=== PATIENT | male | born 1950 | race Caucasian/White ===

== ENCOUNTER 2020-07-03 11:39 | Inpatient (IN) | payer MEDICARE, MEDICAID ==
[2020-07-03] MEDS ORDERED: AZITHROMYCIN IV 500 MG in SODIUM CHLORIDE 0.9% 250ML 250 ML IVPB ONE (12:01)
--- NOTE | 2020-07-03 12:04 | ED.PDOC ---
History of Present Illness - General Chief Complaint: Fever Stated Complaint: COVID + / Fever Time Seen by Provider: 07/03/20 11:42 Source: patient Exam Limitations: clinical condition - History of Present Illness Initial Comments: The patient is a 70-year-old male presented emergency room secondary to respiratory distress. The patient was at the long term this morning when apparently he became fairly acutely more short of breath. He thinks maybe 3 to 4 hours of shortness of breath. He is normally on oxygen apparently. He does apparently have lung cancer that is not currently being treated. There are some confusion as to whether the patient is full code or not. The patient is having some confusion himself at this point. I am told that he was just at the [facility] a day or 2 ago but he does not recall this. He is able to give simple yes no answers to current questions about how he feels. He does not appear to be having any new pain anywhere. He is wheelchair-bound apparently due to a hip fracture according to him. He is uncertain if he has had a stroke in the past. At one point he was apparently on Coumadin. He does not know if he has had any GI bleeds in the past. He does not think he passed out. He did receive a dose of IV Solu-Medrol 125 mg with EMS and was placed on higher flow oxygen in the form of a nonrebreather. We are currently titrating him over to a high flow nasal cannula which he seems to be tolerating well. According to EMS he is mentating better currently. Again I have never seen this patient before and I am uncertain of his normal mental state however he does not appear to be at least mildly confused at this point. Breath sounds are coarse bilaterally. Air movement is fair. The patient does exhibit significant wasting. He is pale. The patient did apparently test positive for coronavirus this morning. He also apparently had a fever earlier this morning. I just got off of the phone with the patient's sister, with the name of Em Sapp, at 1240 in the afternoon. She reports that she does have power of tax attorney for him. After a discussion with her, she does agree to the following advanced directive measures: No chest compression or cardioversion, no intubation. She lives in [place] so we are trying to arrange for formal written documentation of this. Additional information obtained as to the patient's history: The patient does have a history of epilepsy since the age of 14. He has had multiple falls related to seizures and multiple bony trauma related to seizures. He has had a severe closed head injury back in 1988 with some residual memory deficits. His baseline mental status normally consist of not knowing where he is or what year it is. He is normally able to answer simple yes and no questions. The patient has had multiple pneumonias in the past with sepsis as well as urinary tract infections in the past with sepsis. 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 They found metastases to the lung and possibly the kidney in 2016. He had a right upper lobectomy in 2016. No history of asthma or COPD or CHF. He does have a factor V Leiden deficiency and at one point was on blood thinners. 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 No known pulmonary emboli. He does have a history of hypertension as well as some chronic pleural effusions. The patient actually got out of the hospital not yesterday but back on 16 June. He had been in isolation quarantine at the long term up until he yesterday when he was released from it and immediately tested positive. She reports his Dilantin level needs to be kept between 10 and 20 to prevent seizures. He is also had a recent dental infection. He does have a history of peripheral arterial disease but no coronary artery disease. 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 He has been on oxygen for the last year. He has had issues with mucus plugging. He has been off of blood thinners for the last year secondary to fall risk. He has had a history of MRSA urosepsis. Family also reports that the patient becomes very anxious if he comes off of his BuSpar or his Seroquel. This additional information obtained from his sister and his [id number] is very useful and appreciated. Timing/Duration: 1-3 hours Severity: severe Improving Factors: medication - Oxygen Worsening Factors: nothing Associated Symptoms: cough, diaphoresis, loss of appetite, shortness of breath Allergies/Adverse Reactions: Allergies NO KNOWN ALLERGY Allergy (Verified 07/03/20 11:52) Home Medications: Ambulatory Orders Acetaminophen [Tylenol] 650 mg PO PRN 07/03/20 Amlodipine Besylate [Norvasc] 10 mg PO BEDTIME 07/03/20 Atorvastatin Calcium [Lipitor] 20 mg PO BEDTIME 07/03/20 Diclofenac Sodium (Topical) [Voltaren] 1 % TD QID 07/03/20 Lacosamide [Vimpat] 200 mg PO BID 07/03/20 Magnesium Hydroxide [Milk Of Magnesia] 30 ml PO PRN 07/03/20 Phenytoin Sodium Cap Extended [Dilantin Cap] 200 mg PO BID 07/03/20 Potassium Chloride [K-Tab] 20 meq PO DAILY 07/03/20 Prednisone 40 mg PO BID 07/03/20 QUEtiapine FUMARATE [SEROquel] 100 mg PO BEDTIME 07/03/20 Tamsulosin [Flomax] 0.4 mg PO QD 07/03/20 Review of Systems - Review of Systems Constitutional: States: malaise, weakness EENTM: States: no symptoms reported Respiratory: States: cough, short of breath, wheezing Cardiology: States: edema - Chronic Gastrointestinal/Abdominal: States: no symptoms reported Genitourinary: States: no symptoms reported Musculoskeletal: States: see HPI Skin: States: no symptoms reported Neurological: States: see HPI Endocrine: States: no symptoms reported All other Systems: No Change from Baseline Past Medical History (General) - Patient Medical History Hx Seizures: Yes - epilepsy Hx Hypertension: Yes Hx Cancer: Yes - Stage IV - Lung Cancer - Activities of Daily Living [facility]Assisted Living (if applicable):: [facility] - Female History Patient is a Female of Child Bearing Age (10 -59 yrs old): No Family Medical History - Family History Father Living Status: Physical Exam - Physical Exam General Appearance: Alert, Frail, Ill Appearing Eye Exam: bilateral normal - Pale conjunctiva Ears, Nose, Throat: hearing grossly normal, normal pharynx Neck: full range of motion, supple Respiratory: no respiratory distress, no accessory muscle use, rhonchi - Coarse bilaterally Cardiovascular/Chest: normal peripheral pulses, regular rate, rhythm, no edema Peripheral Pulses: radial,right: 2+, radial,left: 2+ Gastrointestinal/Abdominal: non tender, soft Rectal Exam: deferred Back Exam: no vertebral tenderness Extremity: no calf tenderness, pelvis stable, pedal edema - Chronic, other - Chronic limitations on range of motion to the bilateral lower extremities. Neurologic: alert, other - See history of present illness. He does appear to have some significant peripheral neuropathy. He does report a history of epilepsy. Skin Exam: other - Chronic skin changes to bilateral lower extremities related to long-term edema., pallor Comments: Vital Signs - 24 hr 07/03/20 11:40 Temperature 97.2 F L Pulse Rate [ 76 pulse ox] Respiratory 24 Rate Blood Pressure 108/74 [Left Arm] O2 Sat by Pulse 99 Oximetry Vital Signs - 24 hr 07/03/20 07/03/20 11:40 13:01 Temperature 97.2 F L Pulse Rate [ 76 68 pulse ox] Respiratory 24 16 Rate Blood Pressure 108/74 90/53 [Left Arm] O2 Sat by Pulse 99 100 Oximetry Progress - Progress Progress: 07/03/20 14:18 The patient is a 70-year-old male presenting to emergency room [facility] to increased shortness of breath this morning along with fever. He was diagnosed with coronavirus by test at the long term yesterday. The patient has had a increased oxygen requirement. He does have scattered rhonchi. The patient has known metastatic disease to bilateral lung avila. He has a factor V Leiden deficiency and has been off of anticoagulation. CT scan here today shows bilateral lower lung field segmental and subsegmental pulmonary emboli. Infiltrates and bilateral pleural effusions are also noted on the CT scan. It is difficult to say how much of this is chronic. It is also difficult to say if the pulmonary emboli are acute or subacute. The patient has a history of multiple recurrent pneumonias requiring hospitalization on average every 3 months according to his sister for the last 3 to 4 years. For the coronavirus the patient has been started on azithromycin, remdesivir and dexamethasone. Blood cultures have been done. Due to his frequent pneumonias he is also being placed on Zosyn as he is apparently tolerated that well in the past and there is some questionable history of Pseudomonas in his previous pneumonias. Blood pressures are borderline on this patient. It is difficult to say whether the lower blood pressures are due to the pulmonary emboli or the coronavirus infection itself. The patient has responded positively to a small fluid bolus. He is mentating much better at this point. Oxygen requirement has decreased from a nonrebreather down to about 5 L on the high flow nasal cannula. He has a baseline requirement of about 2 L. Consideration was given to giving thrombolytic therapy to this patient, however upon reviewing the CT scan of the chest, I believe the patient is at too high of a risk of hemorrhage from the known metastatic sites, not to mention the unknown ones, to use that therapy at this point in the patient's current condition. He is however being anticoagulated with Lovenox at a therapeutic dose. The patient is at very high risk of dying with the coronavirus in the presence of known metastatic lung disease along with known coagulation disorder. Family does understand that. As per discussion with his Sister Em, the patient is not to be intubated, have chest compressions or electrical cardioversion or defibrillation. Her wishes are that if he is going to pass that we simply make him as comfortable as possible. The patient does require timely dosing of his seizure medications prevent seizures. Additionally family does report that he does have significant anxiety when he comes into the hospital, that we will need to look forward to treating. - Results/Orders Results/Orders: EKG shows normal sinus rhythm at 76 bpm. Normal axis. Borderline R wave p rogression. No ST segment or T wave changes indicative of acute ischemia. Normal QT interval. Laboratory Tests 07/03/20 07/03/20 07/03/20 11:25 11:25 11:25 WBC 9.6 RBC 4.06 L Hgb 12.2 L Hct 36.0 L MCV 88.6 MCH 30.0 MCHC 33.8 RDW 15.2 H Plt Count 238 MPV 7.1 L Absolute Neuts (auto) 8.20 H Absolute Lymphs (auto) 1.00 Absolute Monos (auto) 0.40 Absolute Eos (auto) 0.00 Absolute Basos (auto) 0.00 Neutrophils % 85.2 H Lymphocytes % 10.2 L Monocytes % 4.3 Eosinophils % 0.0 L Basophils % 0.3 PT INR PTT (SP) Fibrinogen D-Dimer, Quantitative Sodium 135 Potassium 4.3 Chloride 92 L Carbon Dioxide 31 Anion Gap 16.3 BUN 26 H Creatinine 1.05 BUN/Creatinine Ratio 24.8 H Random Glucose 143 H Serum Osmolality 277.3 Lactic Acid Calcium 8.4 Magnesium 2.3 Ferritin 382.2 H Total Bilirubin 0.4 AST 25 ALT 12 Alkaline Phosphatase 95 LD Total 155 Creatine Kinase 46 CK-MB (CK-2) 2.3 CK-MB (CK-2) % Not Reportable Troponin I 0.03 C-Reactive Protein 28.8 H* B-Natriuretic Peptide 49.6 Serum Total Protein 7.5 Albumin 3.7 Globulin 3.8 H Albumin/Globulin Ratio 1.0 L TSH 3.24 Urine Color Urine Appearance Urine pH Ur Specific [place] Urine Protein Urine Glucose (UA) Urine Ketones Urine Blood Urine Nitrite Urine Bilirubin Urine Urobilinogen Ur Leukocyte Esterase Urine RBC Urine WBC Ur Epithelial Cells Amorphous Sediment Urine Bacteria Phenytoin 07/03/20 07/03/20 07/03/20 11:25 11:25 11:27 WBC RBC Hgb Hct MCV MCH MCHC RDW Plt Count MPV Absolute Neuts (auto) Absolute Lymphs (auto) Absolute Monos (auto) Absolute Eos (auto) Absolute Basos (auto) Neutrophils % Lymphocytes % Monocytes % Eosinophils % Basophils % PT 10.9 INR 1.10 PTT (SP) 36.2 H Fibrinogen 449 H D-Dimer, Quantitative 2160.0 H* Sodium Potassium Chloride Carbon Dioxide Anion Gap BUN Creatinine BUN/Creatinine Ratio Random Glucose Serum Osmolality Lactic Acid Calcium Magnesium Ferritin Total Bilirubin AST ALT Alkaline Phosphatase LD Total Creatine Kinase CK-MB (CK-2) CK-MB (CK-2) % Troponin I C-Reactive Protein B-Natriuretic Peptide Serum Total Protein Albumin Globulin Albumin/Globulin Ratio TSH Urine Color Yellow Urine Appearance Clear Urine pH 5.5 Ur Specific [place] 1.015 Urine Protein 30 Urine Glucose (UA) Negative Urine Ketones Negative Urine Blood Negative Urine Nitrite Negative Urine Bilirubin Negative Urine Urobilinogen 0.2 Ur Leukocyte Esterase Negative Urine RBC 0 Urine WBC 0-1 Ur Epithelial Cells 1-3 Amorphous Sediment 1+ Urine Bacteria 1+ Phenytoin 12.2 07/03/20 12:15 WBC RBC Hgb Hct MCV MCH MCHC RDW Plt Count MPV Absolute Neuts (auto) Absolute Lymphs (auto) Absolute Monos (auto) Absolute Eos (auto) Absolute Basos (auto) Neutrophils % Lymphocytes % Monocytes % Eosinophils % Basophils % PT INR PTT (SP) Fibrinogen D-Dimer, Quantitative Sodium Potassium Chloride Carbon Dioxide Anion Gap BUN Creatinine BUN/Creatinine Ratio Random Glucose Serum Osmolality Lactic Acid 2.0 Calcium Magnesium Ferritin Total Bilirubin AST ALT Alkaline Phosphatase LD Total Creatine Kinase CK-MB (CK-2) CK-MB (CK-2) % Troponin I C-Reactive Protein B-Natriuretic Peptide Serum Total Protein Albumin Globulin Albumin/Globulin Ratio TSH Urine Color Urine Appearance Urine pH Ur Specific [place] Urine Protein Urine Glucose (UA) Urine Ketones Urine Blood Urine Nitrite Urine Bilirubin Urine Urobilinogen Ur Leukocyte Esterase Urine RBC Urine WBC Ur Epithelial Cells Amorphous Sediment Urine Bacteria Phenytoin CT angiogram of the chest shows multiple pulmonary masses. He does additionally have lower lung field segmental and subsegmental pulmonary emboli. There is mild cardiomegaly. There are lower lobe infiltrates as well as chronic pleural effusions. See report for details. Departure - Departure Clinical Impression: Bilateral pulmonary embolism, Pneumonia due to human coronavirus Disposition: Admit Patient Departure Forms: ED Discharge - Pt. Copy, Patient Portal Self Enrollment Referrals: TOMMY PALOMARES [Primary Care Provider] - 1-2 Weeks Home Medications: Ambulatory Orders Acetaminophen [Tylenol] 650 mg PO PRN 07/03/20 Amlodipine Besylate [Norvasc] 10 mg PO BEDTIME 07/03/20 Atorvastatin Calcium [Lipitor] 20 mg PO BEDTIME 07/03/20 Diclofenac Sodium (Topical) [Voltaren] 1 % TD QID 07/03/20 Lacosamide [Vimpat] 200 mg PO BID 07/03/20 Magnesium Hydroxide [Milk Of Magnesia] 30 ml PO PRN 07/03/20 Phenytoin Sodium Cap Extended [Dilantin Cap] 200 mg PO BID 07/03/20 Potassium Chloride [K-Tab] 20 meq PO DAILY 07/03/20 Prednisone 40 mg PO BID 07/03/20 QUEtiapine FUMARATE [SEROquel] 100 mg PO BEDTIME 07/03/20 Tamsulosin [Flomax] 0.4 mg PO QD 07/03/20 Decision To Admit - Decistion To Admit Decision to Admit Reason: Medical Nature Decision to Admit Date: 07/03/20 Decision to Admit Time: 14:36
[2020-07-03] MEDS ORDERED: SODIUM CHLORIDE 0.9% 1000ML 500 ML IVS ONE ×2 (12:11→12:46)
[2020-07-03] MEDS ORDERED: DEXAMETHASONE INJ 4 MG/ML VIAL IV ONE (12:11)
--- NOTE | 2020-07-03 12:16 | RAD ---
EXAM DESCRIPTION: Chest,1 View CLINICAL HISTORY: 70 years Male, hypoxia, sob COMPARISON: None. Findings: One view(s)/radiograph(s) Left lung mass measuring 3.7 cm. Cardiac silhouette and pulmonary vasculature are within normal limits. Small bilateral pleural effusions. No pneumothorax. Osteopenia. No acute osseous abnormality identified. IMPRESSION: Left lung mass measuring 3.[address] chest for further evaluation. Electronically signed by: Fernando Villela MD 07/03/2020 12:14 PM [facility]
[2020-07-03] MEDS ORDERED: PIPERACILLIN/TAZOBACTAM 3.375 GM in SODIUM CHLORIDE 0.9% 100ML 100 ML IVPB ONE (12:34)
[2020-07-03] MEDS ORDERED: REMDESIVIR 200 MG in SODIUM CHLORIDE 0.9% 250ML 250 ML IVPB ONE (12:56)
--- NOTE | 2020-07-03 13:52 | CT ---
Study: CT angiography of the chest, pulmonary embolus protocol. Indication: covid, hypoxia, ddimer, factor 5 leiden Technique: Axial CT images were acquired through the chest after intravenous administration of contrast utilizing the CT angiography, pulmonary embolus protocol. Computer-generated 3D reconstructions (MIPS) were performed and reviewed. This exam was performed according to our departmental dose-optimization program, which includes automated exposure control, adjustment of the mA and/or kV according to patient size and/or use of iterative reconstruction technique. Comparison: Radiographs, same day. Findings: Cardiomegaly. Scattered atherosclerosis. Scattered subsegmental and segmental pulmonary emboli within the bilateral lower lobes. Enlarged subcarinal/right hilar lymphadenopathy suspected with mild narrowing of the right mainstem bronchus but difficult to characterize due to phase of imaging. Degenerative changes of the spine noted. Severe left shoulder osteoarthritis with a 30 mm loose body in the subscapular recess. Partial visualization of ossification within what is believed to be the left biceps musculature. Numerous bilateral pulmonary nodules/masses. Largest left upper lobe mass posteriorly measures up to 3.8 cm in diameter. These are concerning for metastatic disease. Small bilateral pleural effusions with mild posterior dependent bibasilar consolidation and air bronchograms, right greater than left. No pneumothorax. Impression: Bilateral lower lobe pulmonary emboli. Numerous pulmonary masses/nodules concerning for metastatic disease. Correlation with histologic analysis versus PET/CT recommended. Small bilateral pleural effusions with bibasilar consolidation, right greater than left. Suspected mediastinal/right hilar lymphadenopathy and narrowing of the right mainstem bronchus but difficult to evaluate due to phase of imaging. Additional findings as above. Findings on this exam were relayed to Luis Greenberg at 07/03/2020 1:49 PM [employer]. Electronically signed by: Miguel Mattson MD 07/03/2020 1:50 PM [employer]
[2020-07-03] MEDS ORDERED: ENOXAPARIN SODIUM 80 MG/0.8 ML SYG SUBCU ONE (14:06)
[2020-07-03] MEDS ORDERED: IPRATROPIUM/ALBUTEROL 3 ML VIAL NEB ONE (14:32)
[2020-07-03] MEDS ORDERED: ACETYLCYSTEIN 20 % 6,000 MG/30 ML VIAL NEB ONE (14:32)
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
[2020-07-03] MEDS ORDERED: SODIUM CHLORIDE 0.9% 1000ML 1,000 ML IVS PRN (16:50)
[2020-07-03] MEDS ORDERED: SODIUM CHLORIDE 0.9% (FLUSH) 10 ML SYG ONE (19:21)
[2020-07-03] MEDS: MORPHINE SULFATE INJ 10 MG/ML VIAL IV PRN (19:24)
[2020-07-03] MEDS ORDERED: HALOPERIDOL LACTATE INJ 5 MG/ML VIAL IM ONE (19:49)
[2020-07-03] MEDS ORDERED: diphenhydrAMINE HCL 50 MG/ML VIAL IV ONE (19:50)
[2020-07-03] MEDS ORDERED: FUROSEMIDE INJ 40 MG/4 ML VIAL IV ONE (19:51)
[2020-07-03] MEDS ORDERED: guaiFENesin ER TAB 600 MG TAB ONE (19:52)
[2020-07-03] MEDS: guaiFENesin ER TAB 600 MG TAB PO SCH (19:56)
[2020-07-03] MEDS: ALBUTEROL INHALER 64 PUFF/8GM INH SCH (20:40)
[2020-07-04] MEDS: MORPHINE SULFATE INJ 10 MG/ML VIAL IV PRN ×4 (00:03→18:15)
[2020-07-04] MEDS: ENOXAPARIN SODIUM 80 MG/0.8 ML SYG SUBCU SCH ×2 (02:19→12:10)
[2020-07-04] MEDS: diphenhydrAMINE HCL 50 MG/ML VIAL IV PRN ×3 (02:19→21:20)
[2020-07-04] MEDS: HALOPERIDOL LACTATE INJ 5 MG/ML VIAL IM PRN ×3 (02:19→21:21)
[2020-07-04] MEDS ORDERED: SODIUM CHLORIDE 0.9% (FLUSH) 10 ML SYG IV PRN (08:09)
[2020-07-04] MEDS ORDERED: QUEtiapine FUMARATE 100 MG TAB PO ONE (08:21)
[2020-07-04] MEDS ORDERED: SODIUM CHLORIDE 0.9% 250ML 250 ML ONE (08:24)
[2020-07-04] MEDS ORDERED: AZITHROMYCIN IV 500 MG VIAL IVPB ONE (08:24)
[2020-07-04] MEDS ORDERED: MAGNESIUM HYDROXIDE 30 ML UD PO SCH (08:30)
[2020-07-04] MEDS ORDERED: TAMSULOSIN 0.4 MG CAP PO SCH (08:30)
[2020-07-04] MEDS: DEXAMETHASONE INJ 10 MG/ML VIAL IV SCH (08:50)
[2020-07-04] MEDS: AZITHROMYCIN IV 500 MG in SODIUM CHLORIDE 0.9% 250ML 250 ML IVPB SCH (08:51)
[2020-07-04] MEDS: guaiFENesin ER TAB 600 MG TAB PO SCH ×2 (08:51→21:20)
[2020-07-04] MEDS: cefTRIAXone SODIUM 1 GM in SODIUM CHL 0.9% 50ML MIN-BAG+ 50 ML IVPB SCH (08:51)
[2020-07-04] MEDS: IV SET AND CAP CHANGE INJ INJ SCH (08:54)
[2020-07-04] MEDS: ALBUTEROL INHALER 64 PUFF/8GM INH SCH ×4 (09:00→20:40)
[2020-07-04] MEDS ORDERED: NON-FORMULARY MEDICATION 1 EA MIS (Potassium Chloride [K-Tab] 20 MEQ) PO SCH (09:00)
[2020-07-04] MEDS: PHENYTOIN SODIUM CAP EXTENDED 100 MG CAP PO SCH ×2 (12:10→21:19)
[2020-07-04] MEDS: POTASSIUM CHLORIDE 20 MEQ TAB PO SCH (12:10)
[2020-07-04] MEDS: TAMSULOSIN 0.4 MG CAP PO SCH (12:11)
[2020-07-04] MEDS: REMDESIVIR 100 MG in SODIUM CHLORIDE 0.9% 250ML 250 ML IVPB SCH (12:11)
[2020-07-04] MEDS: DICLOFENAC SODIUM 1% TD SCH ×4 (12:52→21:25)
[2020-07-04] MEDS: LACOSAMIDE 200 MG PO SCH ×2 (12:52→21:25)
[2020-07-04] MEDS: busPIRone HCL 5 MG TAB PO SCH ×2 (12:58→21:19)
--- NOTE | 2020-07-04 13:15 | PN ---
SUPERVISING PHYSICIAN: Xander Celis MD DATE: 07/04/20 SUBJECTIVE: The patient is confused this morning, but responds that he is not short of breath. However, he continues to take his oxygen off and is on the call light quite often. He was up all night and quite confused overnight. Haldol and Benadryl helped for a short amount of time last night. OBJECTIVE: VITAL SIGNS: Blood pressure 170/89, heart rate 85, respiratory rate 20, temperature 98.2, oxygen saturation 99% on 5 liters via nasal cannula. GENERAL: Mr. Sapp is a 70-year-old male patient who is very anxious and agitated, but in no active distress. NEUROLOGIC: The patient is alert. LUNGS: Coarse sounds bilaterally. CARDIOVASCULAR: Regular rate and rhythm. Normal S1, S2. ABDOMEN: Soft. Positive bowel sounds. EXTREMITIES: Lower extremities with no edema. LABORATORY: Labs today show white count 11.4, hemoglobin 12.3, hematocrit 36.9, platelet count 238. D-dimer went up to 2330 from 2160. Chemistry shows a sodium 138, potassium 3.8, chloride 95, CO2 27, BUN 22, creatinine 0.82. Glucose 90, calcium 8.1. C-reactive protein 21.6, troponin negative. ASSESSMENT: 1. Bilateral pulmonary emboli. 2. COVID pneumonia. 3. Metastatic lung cancer. 4. Factor V Leiden deficiency. 5. Dehydration. 6. Altered mental status, likely acute delirium on chronic dementia. 7. Seizure disorder. PLAN: We will continue current therapies with Remdesivir as well as anticoagulation, empiric antibiotics, scheduled albuterol inhalers and Mucinex. His oxygenation status really has not worsened. At this point, his biggest issue is really delirium/anxiety and agitation. I have resumed his home medications. We will start some BuSpar on top of the Seroquel if needed. The patient has a Cheung catheter for close I&O monitoring as well as the fact that the patient is unsteady on his feet and cannot get up on his own. #[id number] [facility]
[2020-07-04] MEDS ORDERED: fentaNYL CITRATE INJ 50 MCG/ML 2 ML AMP ONE (18:36)
[2020-07-04] MEDS ORDERED: fentaNYL CITRATE INJ 50 MCG/ML 2 ML AMP IV ONE (18:41)
[2020-07-04] MEDS: fentaNYL CITRATE INJ 50 MCG/ML 2 ML AMP IV PRN (20:30)
[2020-07-04] MEDS ORDERED: NON-FORMULARY MEDICATION 1 EA MIS (Amlodipine Besylate [Norvasc] 10 MG) PO SCH (21:00)
[2020-07-04] MEDS: ATORVASTATIN 20 MG TAB PO SCH (21:19)
[2020-07-04] MEDS: amLODIPine BESYLATE 5 MG TAB PO SCH (21:19)
[2020-07-04] MEDS: QUEtiapine FUMARATE 100 MG TAB PO SCH (21:20)
[2020-07-05] MEDS: ENOXAPARIN SODIUM 80 MG/0.8 ML SYG SUBCU SCH ×2 (02:07→13:12)
[2020-07-05] MEDS: diphenhydrAMINE HCL 50 MG/ML VIAL IV PRN ×4 (02:36→15:58)
[2020-07-05] MEDS: HALOPERIDOL LACTATE INJ 5 MG/ML VIAL IM PRN ×4 (02:36→15:52)
[2020-07-05] MEDS: fentaNYL CITRATE INJ 50 MCG/ML 2 ML AMP IV PRN ×3 (04:34→09:49)
--- NOTE | 2020-07-05 07:21 | RAD ---
EXAM: XR Chest, 1 View CLINICAL HISTORY: The patient is 70 years old and is Male; covid-19 TECHNIQUE: Frontal view of the chest. COMPARISON: CT chest 07/03/2020. FINDINGS: Lungs: Consolidation in the right lung base. Multiple rounded opacities in the lungs bilaterally. Pleural space: Blunting of the costophrenic angles suggestive of bilateral pleural effusions. No pneumothorax. Heart: Unremarkable. No cardiomegaly. Mediastinum: Unremarkable. Bones/joints: Degenerative changes of the left glenohumeral joint. IMPRESSION: 1. Consolidation in the right lung base. 2. Multiple rounded opacities in the lungs bilaterally corresponding to the nodules/masses seen on the prior CT chest. 3. Blunting of the costophrenic angles suggestive of bilateral pleural effusions. Electronically signed by: Bimal Abebe MD 07/05/2020 7:19 AM [employer]
[2020-07-05] MEDS: DEXAMETHASONE INJ 10 MG/ML VIAL IV SCH (07:29)
[2020-07-05] MEDS: busPIRone HCL 5 MG TAB PO SCH ×2 (07:29→20:41)
[2020-07-05] MEDS: POTASSIUM CHLORIDE 20 MEQ TAB PO SCH (07:30)
[2020-07-05] MEDS: guaiFENesin ER TAB 600 MG TAB PO SCH ×2 (07:30→20:43)
[2020-07-05] MEDS: TAMSULOSIN 0.4 MG CAP PO SCH (07:30)
[2020-07-05] MEDS: PHENYTOIN SODIUM CAP EXTENDED 100 MG CAP PO SCH ×2 (07:30→20:43)
[2020-07-05] MEDS: cefTRIAXone SODIUM 1 GM in SODIUM CHL 0.9% 50ML MIN-BAG+ 50 ML IVPB SCH (07:31)
[2020-07-05] MEDS: DICLOFENAC SODIUM 1% TD SCH ×2 (07:33→13:12)
[2020-07-05] MEDS: LACOSAMIDE 200 MG PO SCH ×2 (09:13→20:43)
[2020-07-05] MEDS: ALBUTEROL INHALER 64 PUFF/8GM INH SCH ×4 (09:15→20:45)
[2020-07-05] MEDS: AZITHROMYCIN IV 500 MG in SODIUM CHLORIDE 0.9% 250ML 250 ML IVPB SCH (09:43)
[2020-07-05] MEDS: REMDESIVIR 100 MG in SODIUM CHLORIDE 0.9% 250ML 250 ML IVPB SCH (13:12)
[2020-07-05] MEDS: CAPSAICIN 0.025% CREAM 60 GM TUBE TOP SCH ×2 (15:45→20:44)
[2020-07-05] MEDS: ATORVASTATIN 20 MG TAB PO SCH (20:43)
[2020-07-05] MEDS: QUEtiapine FUMARATE 100 MG TAB PO SCH (20:44)
[2020-07-05] MEDS: amLODIPine BESYLATE 5 MG TAB PO SCH (20:45)
[2020-07-06] MEDS: ENOXAPARIN SODIUM 80 MG/0.8 ML SYG SUBCU SCH ×2 (01:31→14:19)
[2020-07-06] MEDS ORDERED: SODIUM CHLORIDE 0.9% 500ML 500 ML IVS ONE (06:15)
[2020-07-06] MEDS: ALBUTEROL INHALER 64 PUFF/8GM INH SCH ×4 (07:45→19:35)
--- NOTE | 2020-07-06 08:02 | PN ---
SUPERVISING PHYSICIAN: Xander Celis MD DATE: 07/05/20 SUBJECTIVE: The patient is sitting up in bed. He continues to be quite confused. We have adjusted his medications as Haldol, Benadryl and Ativan calm the patient down. He takes his oxygen off and on. Nursing reports there have been no other issues. OBJECTIVE: VITAL SIGNS: Temperature 97.6, heart rate 103, blood pressure 154/97, respiratory rate 21, O2 saturation 95% on 6 liters nasal cannula. RESPIRATORY: A few scattered rhonchi throughout and diminished at the bases. CARDIAC: Regular rate and rhythm. At times, he is slightly tachycardic. NEUROLOGIC: He is awake, but confused and somewhat agitated. LABORATORY: WBCs 12,600, hemoglobin 13.5, hematocrit 41.4. He has a left shift on differential. D-dimer 834. Electrolytes are basically within normal limits with the exception of his calcium is slightly low at 8. C-reactive protein 20.1. MICROBIOLOGY: Preliminary blood cultures show no growth after 48 hours. RADIOLOGY: Chest x-ray shows 1) Consolidation in the right lung base. 2) Multiple rounded opacities in the lungs bilaterally corresponding to the nodules seen in the prior CT chest. 3) Blunting of the costophrenic angles suggestive of bilateral pleural effusions. ASSESSMENT: 1. Bilateral pulmonary emboli. 2. COVID pneumonia. 3. Metastatic lung cancer. 4. Factor V Leiden deficiency. 5. Dehydration. 6. 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 7. Seizure disorder. PLAN: We will continue the COVID guidelines including lab and medications. We will monitor that closely. There is an issue with one of his seizure medicines called lacosamide and the intermediate is supposed to bring his medications so we can continue that. He does get quite agitated and confused most likely due to his dementia. We will monitor that closely and medicate him as appropriate. We will continue on the Lovenox as previously ordered. We will continue to monitor the patient closely and follow as needed. #[id number] [facility]
[2020-07-06] MEDS: PHENYTOIN SODIUM CAP EXTENDED 100 MG CAP PO SCH ×2 (08:25→20:46)
[2020-07-06] MEDS: busPIRone HCL 5 MG TAB PO SCH ×2 (08:26→20:46)
[2020-07-06] MEDS: LACOSAMIDE 200 MG PO SCH ×2 (08:26→20:48)
[2020-07-06] MEDS: TAMSULOSIN 0.4 MG CAP PO SCH (08:27)
[2020-07-06] MEDS: POTASSIUM CHLORIDE 20 MEQ TAB PO SCH (08:27)
[2020-07-06] MEDS: HALOPERIDOL LACTATE INJ 5 MG/ML VIAL IM PRN ×2 (08:27→15:06)
[2020-07-06] MEDS: guaiFENesin ER TAB 600 MG TAB PO SCH ×2 (08:27→20:47)
[2020-07-06] MEDS: cefTRIAXone SODIUM 1 GM in SODIUM CHL 0.9% 50ML MIN-BAG+ 50 ML IVPB SCH (08:27)
[2020-07-06] MEDS: DEXAMETHASONE INJ 10 MG/ML VIAL IV SCH (08:27)
[2020-07-06] MEDS: diphenhydrAMINE HCL 50 MG/ML VIAL IV PRN (08:29)
[2020-07-06] MEDS: AZITHROMYCIN IV 500 MG in SODIUM CHLORIDE 0.9% 250ML 250 ML IVPB SCH (09:05)
[2020-07-06] MEDS: CAPSAICIN 0.025% CREAM 60 GM TUBE TOP SCH ×4 (09:05→21:07)
[2020-07-06] MEDS: REMDESIVIR 100 MG in SODIUM CHLORIDE 0.9% 250ML 250 ML IVPB SCH (11:40)
--- NOTE | 2020-07-06 17:44 | PN ---
SUPERVISING PHYSICIAN: Xander Celis MD DATE: 07/06/20 SUBJECTIVE: The patient is lying in bed. He is sleeping. A few hours prior, he was medicated due to his severe agitation and his inability to get keep his oxygen on. He does not follow commands well. It is reported by nursing that he does do well when he has some mild sedatives on board and will keep his oxygen on. His O2 satisfactory are in the low 90s on high flow oxygen. No other issues per nursing staff. OBJECTIVE: VITAL SIGNS: Temperature 97.1, heart rate 102, blood pressure 135/91. It did go up to 148/109 when he was agitated. Respiratory rate 18, O2 saturation 92% on 14 high flow oxygen. RESPIRATORY: Diminished at the bases. CARDIAC: Regular rate and rhythm. NEUROLOGIC: He is sleeping right now and slightly lethargic. He does open his eyes to command and answers simple questions at this time. LABORATORY: WBCs 10,900, hemoglobin 16.1, hematocrit 44.3. D-dimer 1,240. Sodium 141, potassium 4.8, chloride 99, carbon dioxide 27, BUN 33, creatinine 1.52. Calcium is 8, magnesium 2.2. C-reactive protein 20.1. MICROBIOLOGY: Preliminary blood cultures show no growth after 3 days. All other labs and films have been reviewed via the EMR. ASSESSMENT: 1. Bilateral pulmonary emboli. 2. COVID pneumonia. 3. Metastatic lung cancer. 4. Factor V Leiden deficiency. 5. Dehydration. 6. 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 7. Seizure disorder. PLAN: We will continue the COVID guidelines including labs, x-rays and medications. I have also ordered PICC line to be placed as the patient has lost multiple IV sites and is a difficult stick. I spoke with his sister at length today about his code status as well as his progress here in the hospital. At this point, she would like to continue the DNR, but wants to continue to treat him aggressively. I have ordered lab for in the morning including a Dilantin level. We will continue to monitor the patient closely and follow as needed. #[id number] [facility]
[2020-07-06] MEDS: amLODIPine BESYLATE 5 MG TAB PO SCH (20:46)
[2020-07-06] MEDS: QUEtiapine FUMARATE 100 MG TAB PO SCH (20:47)
[2020-07-06] MEDS: ATORVASTATIN 20 MG TAB PO SCH (20:47)
[2020-07-07] MEDS: ENOXAPARIN SODIUM 80 MG/0.8 ML SYG SUBCU SCH ×2 (02:24→14:03)
--- NOTE | 2020-07-07 04:01 | RAD ---
EXAM: XR Chest, 1 View CLINICAL HISTORY: The patient is 70 years old and is Male; PICC line placement TECHNIQUE: Frontal view of the chest. COMPARISON: No relevant prior studies available. Chest x-ray 07/07/2020. FINDINGS: Lungs: Multiple rounded opacities in the lungs bilaterally, unchanged. Scattered patchy airspace disease in the mid to lower lung avila bilaterally. Pleural space: Blunting of the right costophrenic angle suggestive of a right pleural effusion. No pneumothorax. Heart: Unremarkable. No cardiomegaly. Mediastinum: Unremarkable. Bones/joints: Degenerative changes in the left glenohumeral joint. Tubes, lines and devices: Right PICC with tip at the cavoatrial junction. IMPRESSION: 1. Right PICC with tip at the cavoatrial junction. 2. Multiple rounded opacities in the lungs bilaterally, unchanged. 3. Scattered patchy airspace disease in the mid to lower lung avila bilaterally. 4. Blunting of the right costophrenic angle suggestive of a right pleural effusion. Electronically signed by: Bimal Abebe MD 07/07/2020 3:59 AM [facility]
[2020-07-07] MEDS ORDERED: PHENOL THROAT SPRAY 180 ML BTTL MT ONE (05:01)
[2020-07-07] MEDS ORDERED: PHENOL THROAT SPRAY 180 ML BTTL MT PRN (05:04)
[2020-07-07] MEDS: HALOPERIDOL LACTATE INJ 5 MG/ML VIAL IM PRN ×2 (07:35→11:45)
[2020-07-07] MEDS: ALBUTEROL INHALER 64 PUFF/8GM INH SCH ×4 (08:17→20:33)
[2020-07-07] MEDS: busPIRone HCL 5 MG TAB PO SCH ×2 (08:46→20:01)
[2020-07-07] MEDS: LACOSAMIDE 200 MG PO SCH ×2 (08:47→20:00)
[2020-07-07] MEDS: POTASSIUM CHLORIDE 20 MEQ TAB PO SCH (08:47)
[2020-07-07] MEDS: PHENYTOIN SODIUM CAP EXTENDED 100 MG CAP PO SCH ×2 (08:47→19:59)
[2020-07-07] MEDS: IV SET AND CAP CHANGE INJ INJ SCH (08:47)
[2020-07-07] MEDS: TAMSULOSIN 0.4 MG CAP PO SCH (08:47)
[2020-07-07] MEDS: guaiFENesin ER TAB 600 MG TAB PO SCH ×2 (08:47→20:01)
[2020-07-07] MEDS: CAPSAICIN 0.025% CREAM 60 GM TUBE TOP SCH ×4 (09:42→20:01)
[2020-07-07] MEDS: DEXAMETHASONE INJ 10 MG/ML VIAL IV SCH (12:36)
[2020-07-07] MEDS: cefTRIAXone SODIUM 1 GM in SODIUM CHL 0.9% 50ML MIN-BAG+ 50 ML IVPB SCH (12:37)
[2020-07-07] MEDS: AZITHROMYCIN IV 500 MG in SODIUM CHLORIDE 0.9% 250ML 250 ML IVPB SCH (12:37)
[2020-07-07] MEDS ORDERED: cefTRIAXone SODIUM 1 GM VIAL IM ONE (12:38)
[2020-07-07] MEDS ORDERED: AZITHROMYCIN 250 MG TAB PO ONE (12:39)
[2020-07-07] MEDS ORDERED: LIDOCAINE 1% 2 ML VIAL INJ ONE (12:45)
--- NOTE | 2020-07-07 17:01 | PN ---
SUPERVISING PHYSICIAN: Xander Celis MD DATE: 07/07/20 SUBJECTIVE: The patient had a PICC line placed today but shortly after he placed it, he pulled it out. He still remains agitated at times and he has pretty much one-on-one nursing as he will not stay in bed. His oxygen saturation is okay but he is still requiring high flow at 6 liters. OBJECTIVE: VITAL SIGNS: Temperature 97.8, heart rate 67, blood pressure 164/78, respirations 16, oxygen saturation 93% on 6 liter nasal cannula. GENERAL: Patient looks to be in no acute distress. RESPIRATORY: Lung sounds just diminished towards the bases. CARDIAC: Regular rate and rhythm. ABDOMEN: Soft, non-tender, positive bowel sounds. EXTREMITIES: Without edema. NEUROLOGIC: He is active and alert. He is quite confused but will answer basic questions. No obvious neuro or motor deficits noted. LABORATORY: White count down to 7,000, hemoglobin 11.9, hematocrit 34.8, platelet count 307,000, differential does show a left shift. D-dimer back to 1240 from 834 yesterday. Chemistries today show creatinine down to 0.98, calcium low at 7.7 but corrected to 8.0 for 2.9 albumin. Magnesium normal at 2.2. MICROBIOLOGY: Blood cultures remain negative after 4 days. RADIOLOGY: Chest x-ray this morning per radiology interpretation shows multiple rounded opacities in the lung bases bilaterally, unchanged, there is scattered patchy airspace disease in the mid to lower lung avila bilaterally. ASSESSMENT: 1. Bilateral pulmonary emboli. 2. COVID pneumonia. 3. Metastatic lung cancer. 4. Factor V Leiden deficiency. 5. Dehydration. 6. 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 7. Seizure disorder. PLAN: We will continue with current treatment on COVID guidelines.however, we are waiting on line to be placed, until then we will go with oral medications. Will try to avoid as much sedation as possible but certainly the patient is becoming difficult at times to manage as he gets quite irritated and taking one-on-one care. He does remain a DNR. In regards to the patient's Cheung, this will remain in place due to the patient's high risk for falling and we will monitor and leave as appropriate to care. Until we can transition patient to outpatient management and titrate his oxygen down to discharge home, we will continue to monitor and treat as needed. #[id number] [facility]
[2020-07-07] MEDS: REMDESIVIR 100 MG in SODIUM CHLORIDE 0.9% 250ML 250 ML IVPB SCH (19:53)
[2020-07-07] MEDS: QUEtiapine FUMARATE 100 MG TAB PO SCH (19:59)
[2020-07-07] MEDS: amLODIPine BESYLATE 5 MG TAB PO SCH (19:59)
[2020-07-07] MEDS: ATORVASTATIN 20 MG TAB PO SCH (20:01)
[2020-07-08] MEDS: ENOXAPARIN SODIUM 80 MG/0.8 ML SYG SUBCU SCH ×2 (02:31→13:53)
[2020-07-08] MEDS: PANTOPRAZOLE SODIUM TAB 40 MG PO SCH (05:40)
[2020-07-08] MEDS: ALBUTEROL INHALER 64 PUFF/8GM INH SCH ×4 (08:37→20:50)
[2020-07-08] MEDS: PHENYTOIN SODIUM CAP EXTENDED 100 MG CAP PO SCH ×2 (09:16→20:00)
[2020-07-08] MEDS: POTASSIUM CHLORIDE 20 MEQ TAB PO SCH (09:16)
[2020-07-08] MEDS: guaiFENesin ER TAB 600 MG TAB PO SCH ×2 (09:16→20:00)
[2020-07-08] MEDS: busPIRone HCL 5 MG TAB PO SCH ×2 (09:16→20:00)
[2020-07-08] MEDS: TAMSULOSIN 0.4 MG CAP PO SCH (09:16)
[2020-07-08] MEDS: LACOSAMIDE 200 MG PO SCH ×2 (09:19→20:02)
[2020-07-08] MEDS: BIFIDOBACTERIUM INFANTIS 4 MG CAP PO SCH (09:19)
[2020-07-08] MEDS: HALOPERIDOL LACTATE INJ 5 MG/ML VIAL IM PRN (09:51)
[2020-07-08] MEDS: CAPSAICIN 0.025% CREAM 60 GM TUBE TOP SCH ×4 (10:50→22:28)
[2020-07-08] MEDS: AZITHROMYCIN IV 500 MG in SODIUM CHLORIDE 0.9% 250ML 250 ML IVPB SCH (13:54)
[2020-07-08] MEDS: DEXAMETHASONE INJ 10 MG/ML VIAL IV SCH (13:54)
[2020-07-08] MEDS: cefTRIAXone SODIUM 1 GM in SODIUM CHL 0.9% 50ML MIN-BAG+ 50 ML IVPB SCH (13:54)
--- NOTE | 2020-07-08 15:51 | PN ---
SUPERVISING PHYSICIAN: Xander Celis MD DATE: 07/08/20 SUBJECTIVE: The patient looks to be resting comfortably. He is not quite as agitated today as he was previously. They were able to get a midline in place. He is still maintaining 02 saturations with no signs of distress but still ranging between 6 to 7 liters on high flow nasal cannula. OBJECTIVE: VITAL SIGNS: Temperature 97, blood pressure 150/91, respirations 18, oxygen saturation 90% on high flow nasal cannula at 7 liters at rest. GENERAL: Patient looks to be in no acute distress. RESPIRATORY: Lung sounds just diminished towards the bases. CARDIAC: Regular rate and rhythm. ABDOMEN: Soft, non-tender, positive bowel sounds. EXTREMITIES: Without edema. NEUROLOGIC: He is active and alert. He is quite confused but will answer basic questions. No obvious neuro or motor deficits noted. ASSESSMENT: 1. Bilateral pulmonary emboli. 2. COVID pneumonia. 3. Metastatic lung cancer. 4. Factor V Leiden deficiency. 5. Dehydration. 6. 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 7. Seizure disorder. PLAN: Again, we will continue with current treatment and guidelines. He does have a PICC in place and we restarted his IV medications that he was getting orally. He does have a Cheung in place which remains necessary due to the patient's dementia and requirements for increasing oxygen demand. Still avoiding any sedation if possible but will certainly treat as needed as he does get quite agitated at times. Until we can transition his 02 saturations down we will continue to monitor and treat as needed. #[id number] [facility]
[2020-07-08] MEDS: QUEtiapine FUMARATE 100 MG TAB PO SCH (20:00)
[2020-07-08] MEDS: amLODIPine BESYLATE 5 MG TAB PO SCH (20:00)
[2020-07-08] MEDS: ATORVASTATIN 20 MG TAB PO SCH (20:00)
[2020-07-08] MEDS: fentaNYL CITRATE INJ 50 MCG/ML 2 ML AMP IV PRN (20:03)
[2020-07-08] MEDS: diphenhydrAMINE HCL 50 MG/ML VIAL IV PRN (20:03)
[2020-07-08] MEDS ORDERED: ZIPRASIDONE INJ 20 MG/ML VIAL IM ONE (22:46)
[2020-07-09] MEDS: ENOXAPARIN SODIUM 80 MG/0.8 ML SYG SUBCU SCH (01:38)
[2020-07-09] MEDS ORDERED: PANTOPRAZOLE SODIUM TAB 40 MG PO ONE (04:50)
[2020-07-09] MEDS: PANTOPRAZOLE SODIUM TAB 40 MG PO SCH (05:44)
[2020-07-09 06:07] VITALS: O2SAT 94
[2020-07-09] MEDS: ALBUTEROL INHALER 64 PUFF/8GM INH SCH ×2 (08:45→13:59)
[2020-07-09] MEDS: DEXAMETHASONE INJ 10 MG/ML VIAL IV SCH (10:26)
[2020-07-09] MEDS: LACOSAMIDE 200 MG PO SCH (10:27)
[2020-07-09] MEDS: busPIRone HCL 5 MG TAB PO SCH (10:27)
[2020-07-09] MEDS: TAMSULOSIN 0.4 MG CAP PO SCH (10:27)
[2020-07-09] MEDS: guaiFENesin ER TAB 600 MG TAB PO SCH (10:27)
[2020-07-09] MEDS: PHENYTOIN SODIUM CAP EXTENDED 100 MG CAP PO SCH (10:27)
[2020-07-09] MEDS: POTASSIUM CHLORIDE 20 MEQ TAB PO SCH (10:27)
[2020-07-09] MEDS: cefTRIAXone SODIUM 1 GM in SODIUM CHL 0.9% 50ML MIN-BAG+ 50 ML IVPB SCH (10:27)
[2020-07-09] MEDS: BIFIDOBACTERIUM INFANTIS 4 MG CAP PO SCH (10:27)
[2020-07-09] MEDS: AZITHROMYCIN IV 500 MG in SODIUM CHLORIDE 0.9% 250ML 250 ML IVPB SCH (10:28)
[2020-07-09] MEDS: CAPSAICIN 0.025% CREAM 60 GM TUBE TOP SCH ×2 (10:28→13:26)
[2020-07-09] MEDS ORDERED: ACETAMINOPHEN 325 MG TAB ONE (12:05)
[2020-07-09] MEDS ORDERED: ACETAMINOPHEN 325 MG TAB PO ONE (12:12)
[2020-07-09 13:29] VITALS: BP 135/81; TEMP 97.5
--- NOTE | 2020-07-10 09:25 | DS ---
SUPERVISING PHYSICIAN: Bimal Stark MD ADMISSION DIAGNOSIS: 1. Bilateral pulmonary emboli. 2. COVID pneumonia. 3. Metastatic lung cancer. 4. Factor V Leiden deficiency. 5. Dehydration. 6. Altered mental status, likely acute delirium on chronic dementia. 7. History of seizure disorder. DISCHARGE DIAGNOSIS: 1. Bilateral pulmonary emboli. 2. COVID pneumonia. 3. Metastatic lung cancer. 4. Factor V Leiden deficiency. 5. Dehydration. 6. 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 7. Seizure disorder. REASON FOR HOSPITALIZATION: This is a 70-year-old male patient with a history of lung cancer who came to the hospital for fever and shortness of breath. [facility] apparently was [facility] this morning and was more short of breath than normal. He was recently admitted to the [facility] and discharged from [place] and was in isolation due to COVID contact and then came back positive. In the Emergency Room, he was evaluated to have bilateral pulmonary emboli on CT of the chest. There were numerous pulmonary masses and nodules concerning for metastatic lung cancer, small bilateral pleural effusions and basilar consolidations as well and consistent with his diagnosis. There were not patchy infiltrates consistent with COVID pneumonitis. However, he was hypoxic upon arrival. He was placed initially on a non-rebreather, but then de- escalated to 5 liters. Apparently his oxygenation status is okay. His labs showed a low chloride of 92, elevated BUN of 26, creatinine preserved. CRP 28.8. He does have an elevated D-dimer at 2160, thus he did have the CTA showing bilateral pulmonary emboli. He did not have an elevated white count. It was 9.6, however, he did have left shift of 85.2. Urinalysis insignificant. According to documentation provided by his sister, the patient does have a significant past medical history. As stated, he has metastatic lung cancer which appears to be in the kidneys. He also has a history of Factor V Leiden which apparently in the past he was on warfarin for, but he does not utilize any anticoagulation anymore. LABORATORY: White count on discharge was 7,100, hemoglobin 11.9, hematocrit 34.8, platelet count 207,000. Differential does show a left shift. D-dimer was still elevated at 1240. Chemistries showed potassium 3.5, sodium normal, calcium 7.9 corrected for 2.9 albumin to 8.1. Creatinine 0.79. C-reactive protein down to 5.8 from initial of 28.8. Urinalysis was within normal limits. Dilantin level was within therapeutic range at 12.2. MICROBIOLOGY: Blood cultures negative after 5 days. RADIOLOGY: He had multiple radiographic studies including CTA of the chest and per radiologic interpretation showed bilateral lower lobe pulmonary emboli, numerous pulmonary masses, nodules concerning for metastatic disease. There was note of small bilateral pleural effusions with bibasilar consolidations, right greater than left. Final chest x-ray on 07/07/20 per radiologic interpretation showed multiple round opacities in the lungs bilaterally unchanged. There was scattered patchy airspace disease in the mid and lower lung avila. He also had an echocardiogram that showed left ventricular ejection fraction at 60-65%. See that report for details. HOSPITAL COURSE: Mr. Sapp was admitted for treatment of COVID pneumonia and complications resulting in bilateral pulmonary emboli. He was started on treatment with Remdesivir, Rocephin, azithromycin, Decadron as well as anticoagulation with Lovenox 1 mg per kg. Initially, his O2 saturations in the ER showed he was maintaining 96% on 5 liters nasal cannula. During his hospitalization, he had increasing oxygen demands as high as high flow nasal cannula up to 10 liters and at that time was maintaining 95%. He was able to titrate down on his O2 and at time of discharge he was maintaining 96% on room air. It was felt he had shown good clinical improvement and therefore he was transferred back to [facility]. PLAN: Mr. Sapp was discharged to [facility] to continue with treatment for his pulmonary emboli. He was started on Eliquis 10 mg b.i.d. for 7 days and then transition to 5 mg b.i.d. and to continue at Dr. Easton's discretion at least for probably 30 days. He was also continued on antibiotic coverage with cefdinir twice daily for additional 5 days as well as he was already on prednisone on home medications, which was continued. He was to continue with his normal diet as tolerated and increase activity as tolerated per physical therapy. He was to return to the ER should he have any concerning symptoms and continue to followup with Dr. Easton within 1 to 2 weeks or sooner as needed. CONDITION ON DISCHARGE: Stable and improving. DISPOSITION: The patient was discharged to [facility]. #[id number] MTDD
== END 2020-07-09 13:15 | DRG 177 ==
LOC: ER 11:39 → OBSVTOIN 16:08 → MS 16:08
PROVIDERS: ADMIT Nurse Practitioner; ATTEND Nurse Practitioner Family
PROC: B32T1ZZ Computerized Tomography (CT Scan) of Left Pulmonary Artery using Low Osmolar Contrast (ICD-10-PCS; 2020-07-03)
PROC: B32S1ZZ Computerized Tomography (CT Scan) of Right Pulmonary Artery using Low Osmolar Contrast (ICD-10-PCS; 2020-07-03)
PROC: XW033E5 Introduction of Remdesivir Anti-infective into Peripheral Vein, Percutaneous Approach, New Technology Group 5 (ICD-10-PCS; 2020-07-03)
PROC: 02HV33Z Insertion of Infusion Device into Superior Vena Cava, Percutaneous Approach (ICD-10-PCS; principal; 2020-07-06)
PROC: 5A0945A Assistance with Respiratory Ventilation, 24-96 Consecutive Hours, High Flow/Velocity Cannula (ICD-10-PCS; 2020-07-06)
DX: U07.1 COVID-19 (principal); J12.89 Other viral pneumonia; I26.99 Other pulmonary embolism without acute cor pulmonale; C34.11 Malignant neoplasm of upper lobe, right bronchus or lung; C79.01 Secondary malignant neoplasm of right kidney and renal pelvis; C79.02 Secondary malignant neoplasm of left kidney and renal pelvis; D68.51 Activated protein C resistance; F05 Delirium due to known physiological condition; G40.909 Epilepsy, unspecified, not intractable, without status epilepticus; E86.0 Dehydration; F03.90 Unspecified dementia, unspecified severity, without behavioral disturbance, psychotic disturbance, mood disturbance, and anxiety; Z66 Do not resuscitate; Z86.718 Personal history of other venous thrombosis and embolism

== ENCOUNTER 2020-07-09 22:08 | Emergency (ER) | payer MEDICARE, MEDICAID ==
[2020-07-09] MEDS ORDERED: SODIUM CHLORIDE 0.9% (FLUSH) 10 ML SYG IV PRN (22:22)
--- NOTE | 2020-07-09 22:27 | ED.PDOC ---
History of Present Illness - General Chief Complaint: Laceration Stated Complaint: laceration, COVID + Time Seen by Provider: 07/09/20 22:12 Source: patient, EMS, correction records - History of Present Illness Initial Comments: Patient seen at 2215 upon ED arrival by EMS. 70-year-old male with past medical history of metastatic lung cancer status post right upper lobectomy, factor V Leiden, hypercoagulability previously on warfarin, history of TBI with short-term memory loss who is brought in by EMS from [facility] for chief complaint of ground-level fall with head injury and scalp laceration. The fall was unwitnessed and occurred at the correction just prior to arrival. The patient is unable to recall what happened but believes he was trying to transfer from his bed to his wheelchair. Reports that he is wheelchair-bound and not ambulatory. Reports that he slipped and fell to the ground and struck the left side of his head. Denies any LOC. Nurses heard the fall and ran into the room and found him lying on the ground awake and alert. There was a moderate amount of blood on the floor and patient was noted to have a laceration to the left sided scalp. EMS reported the patient had borderline low blood pressure in route which improved just prior to arrival here. Otherwise his vitals are noted to be stable. The patient reports here that he has constant 7/10 severity headache all throughout the head, no medications given for relief. Denies any neck pain, weakness, numbness, chest pain, shortness of breath, abdominal pain, nausea/vomiting/diarrhea, hip or pelvic pain, other injuries. EMS reported that warfarin was not on the patient's medication list but he does take baby aspirin daily. It appears patient was recently admitted here from 07/03 until this morning when he was discharged back to the correction. He was admitted and treated for COVID-19 pneumonia and bilateral PEs. Per notes during that visit the patient has a DNR CODE STATUS. His sister is the medical power of patent prosecution attorney. Allergies/Adverse Reactions: Allergies NO KNOWN ALLERGY Allergy (Verified 07/03/20 11:52) Home Medications: Ambulatory Orders RX: Acetaminophen [Tylenol] 650 mg PO PRN 07/03/20 RX: Amlodipine Besylate [Norvasc] 10 mg PO BEDTIME 07/03/20 RX: Atorvastatin Calcium [Lipitor] 20 mg PO BEDTIME 07/03/20 RX: Diclofenac Sodium (Topical) [Voltaren] 1 % TD QID 07/03/20 RX: Lacosamide [Vimpat] 200 mg PO BID 07/03/20 RX: Magnesium Hydroxide [Milk Of Magnesia] 30 ml PO PRN 07/03/20 RX: Phenytoin Sodium Cap Extended [Dilantin Cap] 200 mg PO BID 07/03/20 RX: Potassium Chloride [K-Tab] 20 meq PO DAILY 07/03/20 RX: Prednisone 40 mg PO BID 07/03/20 RX: QUEtiapine FUMARATE [Seroquel] 100 mg PO BEDTIME 07/03/20 RX: Tamsulosin [Flomax] 0.4 mg PO QD 07/03/20 Apixaban [Eliquis] 5 mg PO BID #90 tab 07/09/20 Apixaban [Eliquis] 10 mg PO BID 7 Days tab 07/09/20 RX: Albuterol Inhaler [Ventolin Hfa Inhaler] 2 puff INH RTQID inh 07/09/20 RX: Bifidobacterium Infantis [Align] 4 mg PO DAILY cap 07/09/20 RX: Cefdinir [Omnicef] 300 mg PO BID #10 cap 07/09/20 RX: guaiFENesin ER TAB [Mucinex Tab] 600 mg PO BID tab 07/09/20 Review of Systems - Review of Systems Review of Systems: 07/09/20 22:32 as per HPI All other Systems: Reviewed and Negative Past Medical History (General) - Patient Medical History Hx Seizures: No Hx Stroke: No Hx Asthma: No Hx of COPD: No Hx Congestive Heart Failure: No Hx Pacemaker: No Hx Hypertension: Yes Hx Diabetes: No Hx Cancer: Yes - Stage IV - Lung Cancer Hx MRSA: No Family Medical History - Family History Father Living Status: Physical Exam - Physical Exam General Appearance: Alert, Comfortable, No apparent distress, Other - appears cachectic Eye Exam: bilateral normal Ears, Nose, Throat: hearing grossly normal, normal ENT inspection, normal pharynx Neck: non-tender, full range of motion, supple, normal inspection Respiratory: chest non-tender, rales - Bibasilar rales, worse on left side w/o wheezes/rhonchi, no inc'd resp effort noted, appears comfortable on room air Cardiovascular/Chest: normal peripheral pulses, regular rate, rhythm, no edema, no gallop, no JVD, no murmur Peripheral Pulses: radial,right: 2+, radial,left: 2+ Gastrointestinal/Abdominal: non tender, soft, no organomegaly Back Exam: normal inspection, no CVA tenderness, no vertebral tenderness Extremity: normal range of motion, non-tender, normal inspection, no pedal edema, no calf tenderness, normal capillary refill Neurologic: security incident response engineer II-XII nml as tested, no motor/sensory deficits, alert, normal mood/affect, other - not oriented to date Skin Exam: normal color, warm/dry, other - to left frontal parietal region of scalp there is an approx 3 cm superficial hemostatic linear laceration Progress - Progress Progress: 07/09/20 22:34 GLF, closed head injury -Consider also skull fracture, intracranial hemorrhage, C-spine fracture, rib fractures, intrathoracic injury, hip/pelvic fractures, dehydration, electrolyte derangement, arrhythmia, UTI, other -Patient noted to be stable on arrival -We will obtain CT imaging of the head and C-spine as well as x-ray imaging of the chest and pelvis -Obtain blood work, UA -Patient offered pain medications for headache but declines at this time -Plan to repair scalp laceration in the ED, check on tetanus immunization status 07/10/20 00:01 -CT imaging of the head reveals no acute intracranial abnormality although study was suboptimal as patient was unable to tolerate extension of his neck. -X-ray imaging of the pelvis reveals no acute processes, chronic arthritic changes noted. X-ray imaging of the chest is unchanged from 2 days ago, consistent with metastatic lung cancer. -Bloodwork largely unremarkable/unchanged from discharge, BNP slightly elevated above normal range - likely chronic or 2/2 cancer -Pt reports UTD on tetanus immunization - last was reportedly 1-2 weeks ago -Patient has remained stable. The scalp laceration was repaired in the ED without complication. Sutures will need to come out in 7 to 10 days time. -Discharged back to [facility] in good condition, return warnings discussed Jose Cooney MD Billing #[id number] 07/09/20 22:16 UA [URINALYSIS] Stat 07/09/20 22:22 Telemetry .ONCE Sodium Chloride 0.9% (Flush) [Saline Flush Syringe] 10 ml IV PRN PRN Pulse Oximetry Assessment DAILY 07/09/20 22:30 EKG STAT 07/10/20 09:00 Pulse Ox Daily Laboratory Results - last 24 hr 07/09/20 07/09/20 07/09/20 22:30 22:54 22:54 WBC 5.5 RBC 4.13 L Hgb 12.1 L Hct 35.4 L MCV 85.6 MCH 29.3 MCHC 34.2 RDW 15.3 H Plt Count 391 MPV 6.7 L Absolute Neuts (auto) 4.60 Absolute Lymphs (auto) 0.50 L Absolute Monos (auto) 0.40 Absolute Eos (auto) 0.00 Absolute Basos (auto) 0.00 Neutrophils % 83.4 H Lymphocytes % 8.5 L Monocytes % 7.6 Eosinophils % 0.0 L Basophils % 0.5 Sodium 137 Potassium 3.6 Chloride 100 L Carbon Dioxide 26 Anion Gap 14.6 BUN 23 H D Creatinine 0.91 BUN/Creatinine Ratio 25.3 H Random Glucose 131 H D Serum Osmolality 279.3 Calcium 7.8 L B-Natriuretic Peptide 990.0 H* - EKG/XRAY/CT EKG: Sinus - Normal sinus rhythm, heart rate 80, J-point elevation noted in V2, Q waves noted in septal leads likely indicative of prior infarct, T wave inversions noted diffusely which may indicate ischemia but likely chronic, left axis deviation noted, QTc prolonged 547 ms, no prior EKG for comparison XRAY: chest - Diffuse bilateral airspace opacities noted consistent with metastatic lung disease per my read, no significant interval change from 07/07/2020 Procedures - Laceration/Wound Repair Left Frontal Wound Length (cm): 3 Wound's Depth, Shape: superficial, linear Wound Explored: clean Betadine Prep?: Yes Anesthesia: Lidocaine w/ Epi Volume Anesthetic (cc's): 3 Wound Repaired With: sutures Suture Size/Type: 3:0 - Ethilon Number of Sutures: 5 Layer Closure?: No Departure - Departure Clinical Impression: Scalp laceration Qualifiers: Encounter type: initial encounter Qualified Code(s): S01.01XA - Laceration without foreign body of scalp, initial encounter Fall Qualifiers: Encounter type: initial encounter Qualified Code(s): W19.XXXA - Unspecified fall, initial encounter Closed head injury Qualifiers: Encounter type: initial encounter Qualified Code(s): S09.90XA - Unspecified injury of head, initial encounter Time of Disposition: 23:57 Disposition: Discharge to SNF Condition: Good Departure Forms: ED Discharge - Pt. Copy, Patient Portal Self Enrollment Instructions: DI for Laceration Repair, Laceration Repair With Stitches (DC), Closed Head Injury (DC) Diet: resume usual diet Activity: increase activity as tolerated Referrals: TOMMY PALOMARES [Primary Care Provider] - 1-2 Weeks Home Medications: Ambulatory Orders RX: Acetaminophen [Tylenol] 650 mg PO PRN 07/03/20 RX: Amlodipine Besylate [Norvasc] 10 mg PO BEDTIME 07/03/20 RX: Atorvastatin Calcium [Lipitor] 20 mg PO BEDTIME 07/03/20 RX: Diclofenac Sodium (Topical) [Voltaren] 1 % TD QID 07/03/20 RX: Lacosamide [Vimpat] 200 mg PO BID 07/03/20 RX: Magnesium Hydroxide [Milk Of Magnesia] 30 ml PO PRN 07/03/20 RX: Phenytoin Sodium Cap Extended [Dilantin Cap] 200 mg PO BID 07/03/20 RX: Potassium Chloride [K-Tab] 20 meq PO DAILY 07/03/20 RX: Prednisone 40 mg PO BID 07/03/20 RX: QUEtiapine FUMARATE [Seroquel] 100 mg PO BEDTIME 07/03/20 RX: Tamsulosin [Flomax] 0.4 mg PO QD 07/03/20 Apixaban [Eliquis] 5 mg PO BID #90 tab 07/09/20 Apixaban [Eliquis] 10 mg PO BID 7 Days tab 07/09/20 RX: Albuterol Inhaler [Ventolin Hfa Inhaler] 2 puff INH RTQID inh 07/09/20 RX: Bifidobacterium Infantis [Align] 4 mg PO DAILY cap 07/09/20 RX: Cefdinir [Omnicef] 300 mg PO BID #10 cap 07/09/20 RX: guaiFENesin ER TAB [Mucinex Tab] 600 mg PO BID tab 07/09/20 Additional Instructions: Always call the nurses before trying to transfer or stand on your own as you are high risk for falling which may cause severe injury. Return to the ED if you develop new or concerning symptoms such as rapidly worsening or severe headache, confusion, loss of consciousness, etc. Keep the wound clean and dry for the next 24 hours. After that wash gently twice daily with warm soap and water and pat dry and then apply topical antibiotic ointment and a clean dressing. The sutures will need to come out in 7 to 10 days time (07/17-07/20). Continue all her medications as previously prescribed. Follow-up with your primary care physician for repeat evaluation in the next 1 to 2 weeks or sooner as needed.
--- NOTE | 2020-07-09 22:41 | RAD ---
EXAM DESCRIPTION: Chest,1 View 07/09/2020 10:36 PM ELECTRONIC DESIGN ENGINEER CLINICAL HISTORY: 70 years, Male, GLF, COVID+, denies chest pain COMPARISON: 07/07/2020, previous CTA performed 07/03/2020 FINDINGS: Single view of the chest was obtained portable. Prior films were compared. The lung volume is slightly decreased. The heart is prominent. The thoracic aorta demonstrate to be within normal limits. Again there are multiple bilateral pulmonary masses/nodules corresponding most likely to metastatic disease. Trace of bilateral pleural effusions with compressive atelectatic changes. Right upper limit PICC line has been removed. The rest of the soft tissue and bony structures demonstrate to be unremarkable. IMPRESSION: INTERVAL REMOVAL RIGHT UPPER LIMIT PICC LINE. BILATERAL PULMONARY LESION-MASSES CORRESPONDING TO METASTATIC DISEASE. BILATERAL LOWER LUNG AREAS OF AIRSPACE OPACITY-DENSITIES PERHAPS INGESTING ATELECTASIS AND/OR BILATERAL PNEUMONIA. TRACE OF BILATERAL PLEURAL EFFUSIONS. OVERALL NO SIGNIFICANT INTERVAL CHANGE IN COMPARISON Electronically signed by: Silverio Leger MD 07/09/2020 10:39 PM ELECTRONIC DESIGN ENGINEER
--- NOTE | 2020-07-09 22:42 | RAD ---
EXAM DESCRIPTION: Pelvis 07/09/2020 10:39 PM SUPERVISOR HEADING CLINICAL HISTORY: 70 years, Male, GLF, denies pelvic pain COMPARISON: None. FINDINGS: One frontal single view of the pelvis was demonstrated. No gross soft tissue abnormality is identified. There are no gross intraosseous lesions. No periosteal reaction were seen. Severe degenerative changes are noted within the left hip joint. Degenerative changes are seen within the lower lumbar spine. Visualized gas pattern is nondiagnostic. IMPRESSION: DEGENERATIVE CHANGES RIGHT HIP JOINT. DEGENERATIVE CHANGES LOWER LUMBAR SPINE. OTHERWISE UNREMARKABLE PELVIC BONES. Electronically signed by: Silverio Leger MD 07/09/2020 10:41 PM [employer]PERVISOR HEADING
[2020-07-09] MEDS ORDERED: LIDOCAINE 1% W/ EPINEPHRINE 20 ML VIAL INJ ONE (22:49)
[2020-07-09] MEDS ORDERED: CHLORHEXIDINE GLUCONATE 4 % 15 ML UD TOP ONE (23:09)
--- NOTE | 2020-07-09 23:26 | CT ---
EXAM: Head HISTORY: 70 years Male GLF, closed head injury, no LOC COMPARISON: None TECHNIQUE: Contiguous axial images of the head were obtained from the skull base through the vertex without IV contrast followed by multiplanar reformats. This exam was performed according to our departmental dose-optimization program, which includes automated exposure control, adjustment of the mA and/or kV according to patient size and/or use of iterative reconstruction technique. FINDINGS: Suboptimal exam secondary to exclusion of the anterior most aspect of the right frontal convexity from the [id number]. Generalized parenchymal volume loss. No hydrocephalus. No midline shift, mass effect or abnormal extraaxial collection. No acute intracranial hemorrhage or infarct. Chronic microangiopathic ischemic white matter changes. Orbital contents are unremarkable. The paranasal sinuses and mastoid air cells are well pneumatized. No acute calvarial abnormality. IMPRESSION: 1. Suboptimal exam, as stated above. No discernible acute intracranial pathology. If there is sufficient clinical concern, consider short interval follow-up CT. Electronically signed by: Andi Ellis MD 07/09/2020 11:24 PM [facility]
[2020-07-10 00:15] VITALS: BP 112/78; TEMP 97.4; O2SAT 98
== END 2020-07-10 00:15 ==
LOC: ER 22:08
DX: S01.01XA Laceration without foreign body of scalp, initial encounter (principal); S09.90XA Unspecified injury of head, initial encounter; U07.1 COVID-19; C34.90 Malignant neoplasm of unspecified part of unspecified bronchus or lung; I10 Essential (primary) hypertension; D68.51 Activated protein C resistance; Z79.899 Other long term (current) drug therapy; Z79.01 Long term (current) use of anticoagulants; Z87.01 Personal history of pneumonia (recurrent); Z86.711 Personal history of pulmonary embolism; Z99.3 Dependence on wheelchair; W01.0XXA Fall on same level from slipping, tripping and stumbling without subsequent striking against object, initial encounter; Y92.122 Bedroom in nursing home as the place of occurrence of the external cause; Z87.820 Personal history of traumatic brain injury
CPT/HCPCS: 36415; 70450; 71045; 72170; 80048; 83880; 85025; 93005; A4216